=== PATIENT | male | born 1960 ===

== ENCOUNTER 2021-01-24 13:05 | Inpatient (IN) | payer OTHER, MEDICARE ==
[~2021-01-24] VITALS: Ht 177.8 cm; Wt 84.0 kg
[~2021-01-24 13:05] MED LIST: BENAML20/5 PO; CEPH500 PO; METH10 PO; PREG100 PO
[2021-01-24 13:27] LABS: BASOPHILS PERCENT AUTO 1 % (0-2); EOSINOPHILS ABSOLUTE AUTO 0.05 K/mm3 (0.00-0.68); EOSINOPHILS PERCENT AUTO 1 % (0-6); Hematocrit 33.1 % (37.0-53.0); Hemoglobin 10.8 g/dL (13.5-17.5); IMMATURE GRAN ABSOLUTE AUTO 0.21 K/mm3 (0.00-0.10); IMMATURE GRAN PERCENT AUTO 2 % (0-1); LYMPHOCYTES ABSOLUTE AUTO 1.71 K/mm3 (0.84-5.20); LYMPHOCYTES PERCENT AUTO 17 % (21-46); MONOCYTES ABSOLUTE AUTO 1.37 K/mm3 (0.16-1.47); MONOCYTES PERCENT AUTO 13 % (4-13); Mean Corpuscular HGB 34.3 pg (26.0-34.0); Mean Corpuscular HGB Conc 32.6 g/dL (31.5-36.5); Mean Corpuscular Volume 105 fL (80-100); Mean Platelet Volume 10.9 fL (9.1-12.4); NEUTROPHILS ABSOLUTE AUTO 6.95 K/mm3 (1.96-9.15); NEUTROPHILS PERCENT AUTO 67 % (41-73); Platelet Count 188 K/mm3 (150-400); RDW Coefficient Variation 14.6 % (11.7-14.2); RDW Standard Deviation 57.1 fL (35.1-46.3); Red Blood Cell Count 3.15 M/mm3 (4.30-5.90); White Blood Cell Count 10.39 K/mm3 (4.00-11.30)
[2021-01-24 13:51] LABS: Alanine Aminotransfer (ALT/SGP 66 U/L (12-78); Albumin, Blood 2.9 g/dL (3.4-5.0); Albumin/Globulin Ratio 0.9 (0.8-1.8); Alk Phos 51 U/L (50-136); Anion Gap 6 mmol/L (6-16); Aspartate Aminotrans (AST/SGOT 36 U/L (12-37); Bilirubin, Total 0.4 mg/dL (0.1-1.0); Blood Urea Nitrogen 41 mg/dL (8-24); Bun/Creatinine Ratio 53.5 (12.0-20.0); CO2, Blood 22 mmol/L (21-32); Calcium, Blood 8.4 mg/dL (8.5-10.1); Chloride, Blood 111 mmol/L (98-108); Creatinine, Blood 0.77 mg/dL (0.60-1.20); Ethanol (Alcohol), Blood, Med <3 mg/dL; Globulin, Blood 3.1 g/dL (2.2-4.0); Glomerular Filtration Rate >60 (60-); Glucose, Blood 109 mg/dL (70-99); Potassium, Blood 4.4 mmol/L (3.5-5.5); Sodium, Blood 139 mmol/L (136-145)
[2021-01-24] MEDS ORDERED: LORA.5 PO (13:51)
[2021-01-24 14:00] LABS: Source, Urine Clean Catch
[2021-01-24 14:05] LABS: Appearance, Urine Clear (Clear); Bilirubin, Urine Neg (Neg); Blood, Urine Neg (Neg); Color, Urine Yellow (P-Yellow); Glucose Qualitative, Urine 1+ (Neg); Ketones, Urine 1+ (Neg); Leukocyte Esterase, Urine 1+ (Neg); Nitrite, Urine Neg (Neg); Protein, Urine 1+ (Neg); Specific Gravity, Urine 1.015 (1.003-1.022); Urobilinogen, Urine NORM (Normal)
[2021-01-24 14:21] LABS: International Normalized Ratio 1.07; Prothrombin Time Results 11.4 Sec (9.7-11.5)
[2021-01-24 14:35] LABS: Calcium, Ionized (POC) 1.18 mmol/L (1.10-1.46); Chloride (POC) 103 mmol/L (98-108); Creatinine (POC) 0.8 mg/dL (0.8-1.3); Glucose (ISTAT POC) 102 mg/dL (70-99); Hemoglobin (POC) 10.2 g/dL (13.5-17.5); Potassium (POC) 4.5 mmol/L (3.5-5.5); Sodium (POC) 137 mmol/L (135-148); Total CO2 (POC) 26 mmol/L (21-32)
[2021-01-24 14:47] LABS: Bacteria Few /hpf; Hyaline Casts 0-2 /lpf (0-2); Red Blood Cells, Urine 0-2 /hpf (0-2); Squamous Epithelial Cells Not Seen /hpf (Few)
[2021-01-24] MEDS ORDERED: Cialis5 MG PO (15:16)
[2021-01-24 15:27] LABS: U Amphetamine Screen Not Detected; U Barbituate Screen Not Detected; U Benzodiazapine Screen Not Detected; U Buprenorphine Screen Not Detected; U Cannabinoids Screen DETECTED; U Cocaine Screen Not Detected; U Methadone Screen Not Detected; U Methamphetamine Screen Not Detected; U Opiates Screen Not Detected; U Oxycodone Screen Not Detected; U Phencyclidine Screen Not Detected; U Propoxyphene Screen Not Detected
[2021-01-24 16:26] LABS: BASOPHILS ABSOLUTE AUTO 0.06 K/mm3 (0.00-0.23); BASOPHILS PERCENT AUTO 1 % (0-2); EOSINOPHILS ABSOLUTE AUTO 0.02 K/mm3 (0.00-0.68); EOSINOPHILS PERCENT AUTO 0 % (0-6); Hematocrit 30.9 % (37.0-53.0); Hemoglobin 9.9 g/dL (13.5-17.5); IMMATURE GRAN PERCENT AUTO 1 % (0-1); LYMPHOCYTES ABSOLUTE AUTO 0.82 K/mm3 (0.84-5.20); LYMPHOCYTES PERCENT AUTO 12 % (21-46); MONOCYTES PERCENT AUTO 13 % (4-13); Mean Corpuscular HGB 33.2 pg (26.0-34.0); Mean Corpuscular Volume 104 fL (80-100); Mean Platelet Volume 10.9 fL (9.1-12.4); NEUTROPHILS ABSOLUTE AUTO 5.17 K/mm3 (1.96-9.15); NEUTROPHILS PERCENT AUTO 73 % (41-73); Platelet Count 189 K/mm3 (150-400); RDW Coefficient Variation 14.7 % (11.7-14.2); RDW Standard Deviation 56.2 fL (35.1-46.3); Red Blood Cell Count 2.98 M/mm3 (4.30-5.90); White Blood Cell Count 7.07 K/mm3 (4.00-11.30)
[2021-01-24 16:26] LABS: Hematocrit 26.6 % (37.0-53.0); Hemoglobin 8.5 g/dL (13.5-17.5)
[2021-01-24 16:41] LABS: Influenza A, PCR NEGATIVE (NEGATIVE); Influenza B, PCR NEGATIVE (NEGATIVE); Resp Syncytial Virus, PCR NEGATIVE (NEGATIVE); SARS-Cov-2 (COVID-19) PCR, MMC NEGATIVE (NEGATIVE)
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
--- NOTE | 2021-01-24 20:36 | NUR ---
01/24/212035 Oriana Nguyen [facility] CASE WITH DR. NGO, SEE [facility] RECORDS FOR CARE.
[2021-01-24 22:15] LABS: Hematocrit 25.9 % (37.0-53.0); Hemoglobin 8.3 g/dL (13.5-17.5)
[2021-01-25 01:42] LABS: BASOPHILS ABSOLUTE AUTO 0.06 K/mm3 (0.00-0.23); BASOPHILS PERCENT AUTO 1 % (0-2); EOSINOPHILS ABSOLUTE AUTO 0.06 K/mm3 (0.00-0.68); EOSINOPHILS PERCENT AUTO 1 % (0-6); Hematocrit 23.9 % (37.0-53.0); Hemoglobin 7.8 g/dL (13.5-17.5); IMMATURE GRAN ABSOLUTE AUTO 0.03 K/mm3 (0.00-0.10); IMMATURE GRAN PERCENT AUTO 1 % (0-1); LYMPHOCYTES PERCENT AUTO 20 % (21-46); MONOCYTES ABSOLUTE AUTO 1.08 K/mm3 (0.16-1.47); MONOCYTES PERCENT AUTO 18 % (4-13); Mean Corpuscular HGB 33.5 pg (26.0-34.0); Mean Corpuscular HGB Conc 32.6 g/dL (31.5-36.5); Mean Corpuscular Volume 103 fL (80-100); Mean Platelet Volume 10.6 fL (9.1-12.4); NEUTROPHILS PERCENT AUTO 60 % (41-73); Platelet Count 164 K/mm3 (150-400); RDW Coefficient Variation 14.8 % (11.7-14.2); RDW Standard Deviation 56.3 fL (35.1-46.3); Red Blood Cell Count 2.33 M/mm3 (4.30-5.90); White Blood Cell Count 6.03 K/mm3 (4.00-11.30)
[2021-01-25 01:53] LABS: Alanine Aminotransfer (ALT/SGP 44 U/L (12-78); Albumin, Blood 2.5 g/dL (3.4-5.0); Albumin/Globulin Ratio 1.1 (0.8-1.8); Alk Phos 40 U/L (50-136); Anion Gap 4 mmol/L (6-16); Aspartate Aminotrans (AST/SGOT 14 U/L (12-37); Bilirubin, Total 0.2 mg/dL (0.1-1.0); Blood Urea Nitrogen 24 mg/dL (8-24); Bun/Creatinine Ratio 34.3 (12.0-20.0); CO2, Blood 25 mmol/L (21-32); Calcium, Blood 7.9 mg/dL (8.5-10.1); Chloride, Blood 116 mmol/L (98-108); Globulin, Blood 2.3 g/dL (2.2-4.0); Glomerular Filtration Rate >60 (60-); Glucose, Blood 150 mg/dL (70-99); Potassium, Blood 3.9 mmol/L (3.5-5.5); Sodium, Blood 145 mmol/L (136-145); Total Protein, Blood 4.8 g/dL (6.4-8.2)
--- NOTE | 2021-01-25 04:29 | NUR ---
SUMMARY PT HAD PROCEDURE COMPLETED AND WAS RETURNED TO ROOM IN NO DISTRESS. PT HAS BEEN COOPERATIVE AND GOOD SPIRITS. PT HAS REQUESTED TO ADVANCE DIET SOON POSSIBLE. PT FIANCE AND SERVICE DOG VISITED PT. PT HAS BEEN SLEEPING OFF AND ON SINCE VISITORS LEFT. PT DENIES ANY ABD DISCOMFORT OR N/V. PT CURRENTLY SLEEPING IN NO DISTRESS. CALL LIGHT IN REACH.
--- NOTE | 2021-01-25 08:10 | NUR ---
ASSUMED CARE OF PT THIS AM AFTER RECEIVING REPORT FROM DAVID RODRIGUEZ. PT ALERT AND ORIENTED, VSS. WHILE THIS RN AND STUDENT RN IN ROOM, PT TALKS ABOUT WANTING TO EAT REAL FOOD, NOT JUST LIQUID DIET. STUDENT RN BEGINS TO TALK TO PT ABOUT POSSIBLE SOLUTIONS WHEN PT TELLS STUDENT RN TO STOP SPEAKING, STATES "I AM 61 YEARS OLD AND NOT GOING TO BE TAKEN CARE OF BY SOME STUDENT". PT EDUCATED ABOUT THIS HOSPITAL BEING A [facility] AND THAT THE STUDENT RN IS PART OF THE CARE TEAM PROVIDING CARE TO HIM. PT STATES "I DON'T CARE. I'M STILL MAD THAT THE AMBULANCE BROUGHT ME TO THIS HOSPITAL INSTEAD OF [facility]." BOUNDARIES WERE SET WITH PT ON WHAT IS APPROPRIATE WHEN SPEAKING WITH STAFF. PT STATES "I DON'T CARE. I'LL JUST GET A NEW NURSE." PT INFORMED ABOUT LIMITED STAFF IN UNIT AND BOUNDARIES REINFORCED.
[2021-01-25 10:45] LABS: Hematocrit 23.3 % (37.0-53.0); Hemoglobin 7.7 g/dL (13.5-17.5)
[2021-01-25] MEDS ORDERED: HYDR1TAB94 PO (11:06)
[2021-01-25] MEDS ORDERED: PANT40 PO (11:06)
--- NOTE | 2021-01-25 13:28 | NUR ---
UPDATE: PT CLEARED FOR DISCHARGE. BACK BRACE HAS BEEN APPLIED. PT TO IMAGING FOR REPEAT XRAY, RESULTS PENDING.
--- NOTE | 2021-01-25 14:10 | NUR ---
DISCHARGE: PT PROVIDED WITH DC PAPERWORK AND INSTRUCTIONS. ALL QUESTIONS ANSWERED. PT VERBALIZES INTENT TO FOLLOW UP WITH PCP AND [facility] REFERRALS IN [place]. PT DEPARTS IN [facility].
== END 2021-01-25 14:05 | disposition home or self-care (01) | DRG 551 ==
LOC: ER 13:05 → PCU 15:44
PROVIDERS: Emergency Medicine; Student in an Organized Health Care Education/Training Program; ADMIT Internal Medicine
PROC: 0DB78ZX Excision of Stomach, Pylorus, Via Natural or Artificial Opening Endoscopic, Diagnostic (ICD-10-PCS; 2021-01-24)
PROC: 0DB68ZX Excision of Stomach, Via Natural or Artificial Opening Endoscopic, Diagnostic (ICD-10-PCS; principal; 2021-01-24 17:30)
DX: S32.010A Wedge compression fracture of first lumbar vertebra, initial encounter for closed fracture (principal); K25.4 Chronic or unspecified gastric ulcer with hemorrhage; D62 Acute posthemorrhagic anemia; Z20.822 Contact with and (suspected) exposure to COVID-19; K20.90 Esophagitis, unspecified without bleeding; K29.70 Gastritis, unspecified, without bleeding; I95.89 Other hypotension; K21.9 Gastro-esophageal reflux disease without esophagitis; F41.9 Anxiety disorder, unspecified; N40.0 Benign prostatic hyperplasia without lower urinary tract symptoms; Z98.890 Other specified postprocedural states; Z88.8 Allergy status to other drugs, medicaments and biological substances; Z79.899 Other long term (current) drug therapy; V49.40XA Driver injured in collision with unspecified motor vehicles in traffic accident, initial encounter
CPT/HCPCS: 0241U; 36415; 70450; 71045; 71260; 72100; 72125; 72170; 73030; 74177; 80047; 80053; 81001; 82272; 83605; 83690; 84484; 85014; 85018; 85025; 85610; 86850; 86900; 86901; 87086; 88305; 88341; 88342; 93005; 93010; 96365-59; 96375-59; 96376; 99285-25; C9113; G0480; J2405; J2704; J3010; J7030; J7120; Q9967